=== PATIENT | male | born 1950 | race African-American/Black ===

== ENCOUNTER 2023-08-17 19:24 | Emergency (ER) | payer OTHER, MEDICAID ==
[~2023-08-17] VITALS: Ht 177.8 cm; Wt 136.0 kg
[2023-08-17 19:29] VITALS: O2SAT 98
[2023-08-17 21:07] LABS: BASOPHILS % 0.3 % (0.0-2.0); EOSINOPHILS % 0.1 % (0.0-5.0); HEMATOCRIT. 33.5 % (42.0-52.0); LYMPHOCYTES % 7.8 % (20.0-50.0); MEAN CORPUSCULAR HEMOGLOBIN 28.4 pg (28.0-32.0); MEAN CORPUSCULAR HGB CONC 32.8 g/dL (31.0-37.0); MEAN CORPUSCULAR VOLUME 86.6 fL (80.0-94.0); MEAN PLATELET VOLUME 8.3 fl (7.4-10.4); MONOCYTES % 6.3 % (2.0-8.0); NEUTROPHILS % 85.5 % (40.0-76.0); PLATELET 208 x1000/uL (130-400); RED BLOOD CELL COUNT 3.87 mill/uL (4.7-6.1); RED CELL DISTRIBUTION WIDTH 17.1 % (11.6-14.6); WHITE BLOOD COUNT 9.1 x1000/uL (4.5-11.0)
[2023-08-17 21:16] LABS: CHLORIDE 104 mEq/L (98-107); POTASSIUM 3.3 mEq/L (3.5-5.1); SODIUM 141 mEq/L (136-145)
[2023-08-17 21:17] LABS: CARBON DIOXIDE 28 mEq/L (21-32)
[2023-08-17 21:22] LABS: CREATININE 1.6 mg/dL (0.6-1.3); GLUCOSE 125 mg/dL (70-105)
[2023-08-17 21:23] LABS: TROPONIN I HIGH SENSITIVITY 13 ng/L (3.0-53); UREA NITROGEN BLOOD 11 mg/dL (9-23)
[2023-08-17 21:24] LABS: ALANINE AMINOTRANSFERASE 19 IU/L (10-49); ALBUMIN 3.4 g/dL (3.2-4.8); ASPARTATE AMINOTRANSFERASE 21 IU/L (<34)
[2023-08-17 21:25] LABS: BILIRUBIN TOTAL 0.8 mg/dL (0.1-1.0); PROTEIN TOTAL 6.6 g/dL (6.0-8.3)
[2023-08-17] MEDS: HALOPERIDOL LACTATE 5MG/ML VIAL IM ONE (22:40)
[2023-08-17 23:26] VITALS: BP 129/74; PULSE 74; RESP 17; TEMP 98.8
== END 2023-08-17 23:39 | disposition admitted as inpatient to this hospital (09) ==
LOC: ER 19:24
DX: R53.1 Weakness (principal); F03.90 Unspecified dementia, unspecified severity, without behavioral disturbance, psychotic disturbance, mood disturbance, and anxiety; M79.604 Pain in right leg; M79.605 Pain in left leg; I10 Essential (primary) hypertension
CPT/HCPCS: 99285; 71045; 80053; 83880; 83735; 85025; 84484; 36415; 93005; 96372; J1630